=== PATIENT | female | born 1955 | race Caucasian/White ===

== ENCOUNTER 2024-11-17 14:41 | Emergency (ER) | payer MEDICARE, OTHER ==
[~2024-11-17] VITALS: Ht 160 cm; Wt 83.5 kg
[~2024-11-17 14:41] MED LIST: ATEN25TA PO; ATOR40TA PO; BACL10TA PO; BACL20TA PO; DIVA500T2 PO; LORA-259 PO; LOSA50TA39 PO; METFORMIN PO; RISP2TAB5 PO; TRAZ150T75 PO; VALS80TA2 PO; hydrochlorothiazide; topamax
[2024-11-17] MEDS ORDERED: ACETAMINOPHEN ES 500 MG TABLET ONE (16:43)
[2024-11-17] MEDS: ACETAMINOPHEN ES 500 MG TABLET PO ONE (16:51)
[2024-11-17] MEDS ORDERED: ACET-2605 PO (16:53)
[2024-11-17] MEDS ORDERED: IBUP-1490 PO (16:53)
[2024-11-17 17:18] VITALS: BP 160/85; TEMP 98; O2SAT 98
== END 2024-11-17 17:19 | disposition home or self-care (01) ==
LOC: ER 14:46
DX: S93.691A Other sprain of right foot, initial encounter (principal); I10 Essential (primary) hypertension; E11.9 Type 2 diabetes mellitus without complications; F17.200 Nicotine dependence, unspecified, uncomplicated; F20.9 Schizophrenia, unspecified; Z79.899 Other long term (current) drug therapy; Z88.0 Allergy status to penicillin; Z88.5 Allergy status to narcotic agent; Z90.49 Acquired absence of other specified parts of digestive tract; Z90.89 Acquired absence of other organs; Z60.2 Problems related to living alone; W01.0XXA Fall on same level from slipping, tripping and stumbling without subsequent striking against object, initial encounter; Y93.89 Activity, other specified; Y92.89 Other specified places as the place of occurrence of the external cause; Y99.8 Other external cause status
CPT/HCPCS: 73610-TC; 73630-TC